=== PATIENT | female | born 1960 | race Caucasian/White ===

== ENCOUNTER 2017-11-29 00:30 | Emergency (ER) | payer MEDICAID ==
[~2017-11-29] VITALS: Ht 157.5 cm; Wt 61.4 kg
[~2017-11-29 00:30] MED LIST: ASPI81TA42 PO; GLIP5 PO; IBUP-1506 PO; METF750T2 PO; SIMV-261 PO
[2017-11-29] MEDS ORDERED: GLIP10 PO (00:38)
[2017-11-29] MEDS ORDERED: SITA100 PO (00:38)
[2017-11-29] MEDS ORDERED: LISI-661 PO (00:38)
[2017-11-29 02:30] VITALS: BP 134/86
== END 2017-11-29 02:49 | disposition home or self-care (01) ==
LOC: EMS 00:31
DX: M65.221 Calcific tendinitis, right upper arm (principal); E11.9 Type 2 diabetes mellitus without complications; E78.00 Pure hypercholesterolemia, unspecified; I10 Essential (primary) hypertension; Z79.82 Long term (current) use of aspirin
CPT/HCPCS: 99284